=== PATIENT | male | born 1950 | race Caucasian/White ===

== ENCOUNTER 2016-12-23 13:22 | Emergency (ER) | payer BC, MEDICARE ==
[~2016-12-23] VITALS: Ht 180.3 cm; Wt 138.0 kg
[~2016-12-23 13:22] MED LIST: AMITRIPTYLINE H75 M1 PO; AMITRIPTYLINE150 MG PO; ASPIRIN 32325 MG/TAB PO; ASPIRIN E.C. 8181 MG PO; ASPIRIN E.C.325 MG PO; ATENOLOL50 MG PO; CALCIUM 600/VIT1 CAP PO; CALCIUM 600600 M2 PO; CALTRATE 600 +1 TAB PO; CALTRATE 600600 MG PO; CALTRATE-600 W600 MG PO; EFFIENT10 MG PO; FISH OIL CONC1000 MG PO; FLONASE NASAL S16 GM NS; FORTAMET500 MG PO; GLUCOPHAGE1000 MG PO; GLUCOPHAGE850 MG/TAB PO; GLUCOSAMINE/CHONDROI PO; LIPITOR 80MG80 MG PO; LIPITOR80 MG PO; LISINOPRIL10 MG PO; LISINOPRIL20 MG PO; LOPRESSOR 225 MG/TAB PO; METFORMIN850 MG PO; MOTRIN 800800 MG/TAB PO; MVI; MVI PO; NITROSTAT0.4 MG/TAB SL; NORCO 325 MG-7.1 TAB PO; NORVASC2.5 MG PO; OMEGA 31000 MG PO; PLAVIX 75MG TAB75 MG PO; PRILOSEC10 MG PO; PRINIVIL10 MG PO; ULTRAM 50MG TAB50 MG PO; VOLTAREN 75 DR75 MG PO; ZANTAC 150MG T150 MG PO; ZANTAC150 MG PO; ZETIA10 MG PO
[2016-12-23 13:25] VITALS: TEMP 99.5
[2016-12-23] MEDS ORDERED: EFFIENT5 MG PO (13:51)
[2016-12-23] MEDS ORDERED: PRINIVIL20 MG PO (13:51)
[2016-12-23] MEDS ORDERED: PRILOSEC10 MG PO (13:54)
[2016-12-23] MEDS ORDERED: GLUCOTROL 5M5 MG/TAB PO (13:55)
[2016-12-23] MEDS ORDERED: GLUCOTROL10 MG PO (13:55)
[2016-12-23 14:35] LABS: BASO % 0.5 % (0.0-2.0); EOS % 0.3 % (0-4.0); GRAN # 2.3 (1.4-6.5); HEMATOCRIT 43.4 % (42.0-52.0); HEMOGLOBIN 14.5 g/dl (13.5-18.0); LYMPH # 1.2 (1.2-3.4); LYMPH % 30.3 % (20.0-51.0); MEAN CELL VOLUME 93 fl (80.0-100.0); MEAN CORPUSCULAR HEMOGLOBIN 31 pg (27.0-31.0); MEAN CORPUSCULAR HGB CONC 33 g/dl (33.0-37.0); MEAN PLATELET VOLUME 9.9 fl (7.4-10.4); MONO # 0.4 (0.1-0.6); MONO % 10.4 % (1.7-9.3); PLATELET COUNT 111 K/mm3 (130-400); RED BLOOD COUNT 4.65 M/mm3 (4.20-5.60); WHITE BLOOD COUNT 3.9 K/mm3 (4.8-10.8)
[2016-12-23 14:44] LABS: ADJUSTED CALCIUM 9.3 mg/dL (8.4-10.2); ALANINE AMINOTRANSFERASE 61 U/L (21-72); ALBUMIN 3.9 gm/dL (3.5-5.0); ALKALINE PHOSPHATASE 94 U/L (50-136); ANION GAP 12 mmol/L (7-16); BILIRUBIN,TOTAL 1.5 mg/dL (0.0-1.0); BLOOD UREA NITROGEN 17 mg/dL (9-20); CALCIUM 9.2 mg/dL (8.4-10.2); CARBON DIOXIDE 24 mmol/L (22-30); CHLORIDE 98 mmol/L (98-107); CREATININE, serum 0.75 mg/dL (0.66-1.25); GLUCOSE 297 mg/dL (74-106); POTASSIUM 4.4 mmol/L (3.4-5.0); SODIUM 135 mmol/L (137-145); TOTAL PROTEIN 7.3 gm/dL (6.4-8.2)
[2016-12-23 14:56] LABS: TROPONIN-I < 0.012 ng/mL (0.000-0.034)
[2016-12-23 15:21] VITALS: BP 115/88; PULSE 89
== END 2016-12-23 15:23 | disposition home or self-care (01) ==
LOC: COL.ER 13:22
PROVIDERS: Emergency Medicine
DX: J06.9 Acute upper respiratory infection, unspecified (principal); I49.1 Atrial premature depolarization; I25.10 Atherosclerotic heart disease of native coronary artery without angina pectoris; Z95.5 Presence of coronary angioplasty implant and graft; I25.2 Old myocardial infarction

== ENCOUNTER 2019-01-02 12:23 | Emergency (ER) | payer MEDICARE, OTHER ==
[~2019-01-02] VITALS: Ht 180.3 cm; Wt 98.2 kg
[~2019-01-02 12:23] MED LIST changes: +EFFIENT5 MG PO; +GLUCOTROL 5M5 MG/TAB PO; +GLUCOTROL10 MG PO; +PRINIVIL20 MG PO
[2019-01-02 12:28] VITALS: TEMP 98.7
[2019-01-02] MEDS ORDERED: JARDIANCE10 (12:36)
[2019-01-02] MEDS ORDERED: LIPITOR 80MG80 MG PO (12:38)
[2019-01-02] MEDS ORDERED: CIPRO 500MG TA500 MG PO (13:07)
[2019-01-02 14:15] VITALS: BP 135/87; PULSE 85
== END 2019-01-02 14:15 | disposition home or self-care (01) ==
LOC: COL.ER 12:23
DX: H11.32 Conjunctival hemorrhage, left eye (principal); I25.10 Atherosclerotic heart disease of native coronary artery without angina pectoris; Z79.84 Long term (current) use of oral hypoglycemic drugs; Z79.51 Long term (current) use of inhaled steroids; Z23 Encounter for immunization

== ENCOUNTER 2020-04-14 06:37 | Day surgery (SDC) | payer MEDICARE, OTHER ==
[~2020-04-14] VITALS: Ht 180.3 cm; Wt 114.9 kg
[2020-04-14] VITALS (464 sets, daily range): BP systolic 97–144; BP diastolic 61–93; PULSE 62–100; TEMP 98.1–98.6; O2SAT 82–100
[~2020-04-14 06:37] MED LIST changes: -AMITRIPTYLINE150 MG PO; +CIPRO 500MG TA500 MG PO; +ELAVIL150 MG PO; +JARDIANCE10
[2020-04-14 07:52] LABS: HEMATOCRIT 43.7 % (42.0-52.0); HEMOGLOBIN 14.3 g/dl (13.5-18.0); MEAN CELL VOLUME 103 fl (80.0-100.0); MEAN CORPUSCULAR HEMOGLOBIN 34 pg (27.0-31.0); MEAN CORPUSCULAR HGB CONC 33 g/dl (33.0-37.0); MEAN PLATELET VOLUME 9.8 fl (7.4-10.4); PLATELET COUNT 105 K/mm3 (130-400); RED BLOOD COUNT 4.24 M/mm3 (4.20-5.60); REDCELL DISTRIBUTION WIDTH-CV 14.6 % (11.5-14.5)
[2020-04-14 08:01] LABS: CALCIUM 9.3 mg/dL (8.4-10.2); CREATININE, serum 0.78 (0.66-1.25); POTASSIUM 4.1 mmol/L (3.4-5.0)
[2020-04-14 08:04] LABS: PROTHROMBIN TIME 11.2 SECONDS (9.7-12.8)
[2020-04-14 08:06] LABS: PARTIAL THROMBOPLASTIN TIME 30.1 SECONDS (26.0-37.0)
[2020-04-14] MEDS ORDERED: ASPIRIN E.C. 8181 MG PO (08:28)
[2020-04-14] MEDS ORDERED: PROAIR HFA0.09 MG/AC IH (08:28)
[2020-04-14] MEDS ORDERED: NEOSPORIN1 OIN OP (08:29)
[2020-04-14] MEDS ORDERED: PLAVIX 75MG TAB75 MG PO (08:29)
[2020-04-14] MEDS ORDERED: NEURONTIN300 MG/CAP PO (08:30)
[2020-04-14] MEDS ORDERED: CYMBALTA 30MG30 MG PO (08:30)
[2020-04-14] MEDS ORDERED: IMDUR 60MG60 MG/TAB PO (08:31)
[2020-04-14] MEDS ORDERED: CLARITIN 1010 MG/TAB PO (08:32)
[2020-04-14] MEDS ORDERED: ULTRAM 50MG TAB50 MG PO (08:32)
--- NOTE | 2020-04-14 09:11 | NUR ---
SEE MERGE DOCUMENTATION FOR MEDICATION ADMINISTRATION AND INTRA/POST PROCEDURE SEDATION ASSESSMENTS.
--- NOTE | 2020-04-14 11:15 | NUR ---
R radial cath site clean, dry, et intact with no drainage or hematoma noted. Vitals stable at this time. Pt denies chest pain. Bed in low position, call light within reach, will continue to monitor.
--- NOTE | 2020-04-14 16:00 | NUR ---
Pt resting comfortably in bed. R radial cath site clean, dry, et intact with no drainage or hematoma noted. Vitals stable at this time. Pt denies pain or any other discomforts. Bed in low position, call light within reach, will continue to monitor.
[2020-04-15] VITALS (518 sets, daily range): BP systolic 125–149; BP diastolic 68–97; PULSE 65–94; TEMP 97.8–98.2; O2SAT 85–98
--- NOTE | 2020-04-15 | NUR ---
UPON ASSESSMENT PATIENT VERY CHEERFUL CALM, EASY LISTENER AND TALKER, DENIES DISCOMFORT
[2020-04-15 06:43] LABS: CALCIUM 8.8 mg/dL (8.4-10.2); CREATININE, serum 0.74 (0.66-1.25); POTASSIUM 4.2 mmol/L (3.4-5.0)
[2020-04-15 06:44] LABS: BASO % 0.5 % (0.0-2.0); EOS # 0.1 (0.0-0.7); EOS % 1.9 % (0-4.0); GRAN % 48.3 % (42.2-75.2); HEMATOCRIT 42.3 % (42.0-52.0); LYMPH # 1.5 (1.2-3.4); LYMPH % 36.9 % (20.0-51.0); MEAN CELL VOLUME 104 fl (80.0-100.0); MEAN CORPUSCULAR HEMOGLOBIN 35 pg (27.0-31.0); MEAN CORPUSCULAR HGB CONC 33 g/dl (33.0-37.0); MEAN PLATELET VOLUME 10.2 fl (7.4-10.4); MONO # 0.5 (0.1-0.6); MONO % 12.2 % (1.7-9.3); PLATELET COUNT 91 K/mm3 (130-400); RED BLOOD COUNT 4.06 M/mm3 (4.20-5.60); REDCELL DISTRIBUTION WIDTH-CV 14.6 % (11.5-14.5)
--- NOTE | 2020-04-15 09:10 | NUR ---
SW's met with the patient to discuss discharge plan. The patient lives in [place] with his , Lucy (ph#[phone]). He reports independence with ADLs and has a walking stick. The patient's PCP is Dr. Farshad Tate and he receives his medications at [facility]. He reports no difficulties obtaining his meds. The patient does not have advanced directives completed, but he was interested in obtaining a form for DPOA-HC. CHRISTY provided. The patient plans to return home with his upon discharge. No additional needs at this time.
[2020-04-15] MEDS ORDERED: BRILINTA90 MG PO (11:45)
== END 2020-04-15 12:55 | disposition home or self-care (01) ==
LOC: COL.CAR 06:37 → ICU 12:01 → IMCU 23:54 → COL.CAR 04-15 12:55
PROVIDERS: Internal Medicine Cardiovascular Disease
DX: I25.110 Atherosclerotic heart disease of native coronary artery with unstable angina pectoris (principal); I25.2 Old myocardial infarction; I11.9 Hypertensive heart disease without heart failure; I35.1 Nonrheumatic aortic (valve) insufficiency; G47.33 Obstructive sleep apnea (adult) (pediatric); E78.5 Hyperlipidemia, unspecified; E11.9 Type 2 diabetes mellitus without complications; Z79.84 Long term (current) use of oral hypoglycemic drugs; K21.9 Gastro-esophageal reflux disease without esophagitis; I73.9 Peripheral vascular disease, unspecified; Z87.891 Personal history of nicotine dependence; Z95.5 Presence of coronary angioplasty implant and graft; Z79.899 Other long term (current) drug therapy; Z79.82 Long term (current) use of aspirin; Z79.02 Long term (current) use of antithrombotics/antiplatelets; Z83.3 Family history of diabetes mellitus; Z80.42 Family history of malignant neoplasm of prostate; Z88.5 Allergy status to narcotic agent
CPT/HCPCS: OP; C1725; C1769; C1874; C1887; C1894; C9600; J0583; J1644

== ENCOUNTER 2020-06-10 10:52 | Outpatient (CLI) | payer MEDICARE, OTHER ==
[~2020-06-10] VITALS: Ht 180.3 cm; Wt 139.5 kg
[~2020-06-10 10:52] MED LIST changes: +BRILINTA90 MG PO; +CLARITIN 1010 MG/TAB PO; +CYMBALTA 30MG30 MG PO; +IMDUR 60MG60 MG/TAB PO; -JARDIANCE10; +JARDIANCE25 PO; +NEOSPORIN1 OIN OP; +NEURONTIN300 MG/CAP PO; +PROAIR HFA0.09 MG/AC IH
[2020-06-10 11:26] VITALS: BP 111/64; PULSE 68; TEMP 98.5
[2020-06-10] MEDS ORDERED: ELIQUIS 5MG PO (11:41)
[2020-06-10] MEDS ORDERED: KAPSPARGO SPRIN25 MG PO (11:41)
[2020-06-10] MEDS ORDERED: CEPHALEXIN500 M1 PO (12:10)
--- NOTE | 2020-06-10 13:00 | NUR ---
Kristian, Engineering Executive RN in room to change dressing over loop recorder insertion site after dressing has become partially saturated with blood. Bleeding now stopped. Site is observed for 15 mins prior to pt departing and remains C/D/I. Pt assisted out by wheelchair to 's car after review of DC instructions.
== END 2020-06-10 16:40 | disposition home or self-care (01) ==
LOC: COL.CAR 10:52
DX: I48.0 Paroxysmal atrial fibrillation (principal); I25.10 Atherosclerotic heart disease of native coronary artery without angina pectoris

== ENCOUNTER 2020-12-09 10:52 | Outpatient (CLI) | payer MEDICARE, OTHER ==
--- NOTE | 2020-12-01 13:14 | NUR ---
spoke to pt and let him know we need for him to come on the morning of 12/03 for the covid test. pt was agreeable.
[~2020-12-09] VITALS: Ht 180.3 cm; Wt 140.0 kg
[~2020-12-09 10:52] MED LIST changes: +CEPHALEXIN500 M1 PO; +ELIQUIS 5MG PO; +KAPSPARGO SPRIN25 MG PO; -PRINIVIL20 MG PO
[2020-12-09 11:40] LABS: HEMATOCRIT 43.3 % (42.0-52.0); HEMOGLOBIN 14.6 g/dl (13.5-18.0); MEAN CELL VOLUME 96 fl (80.0-100.0); MEAN CORPUSCULAR HEMOGLOBIN 32 pg (27.0-31.0); MEAN CORPUSCULAR HGB CONC 34 g/dl (33.0-37.0); MEAN PLATELET VOLUME 9.5 fl (7.4-10.4); PLATELET COUNT 127 K/mm3 (130-400); RED BLOOD COUNT 4.53 M/mm3 (4.20-5.60); REDCELL DISTRIBUTION WIDTH-CV 13.2 % (11.5-14.5)
[2020-12-09 11:48] LABS: INR 1.2 (0.8-3.0); PROTHROMBIN TIME 13.7 SECONDS (9.7-12.8)
[2020-12-09 11:50] LABS: CALCIUM 9.4 mg/dL (8.4-10.2); CREATININE, serum 0.77 (0.66-1.25); POTASSIUM 4.1 mmol/L (3.4-5.0)
[2020-12-09] MEDS ORDERED: BENADRYL25 M2 PO (11:56)
[2020-12-09] MEDS ORDERED: FLONASEALLERGY NS (11:57)
[2020-12-09 11:58] VITALS: BP 116/60; PULSE 64
[2020-12-09 12:55] VITALS: BP 120/72; PULSE 61
--- NOTE | 2020-12-09 12:55 | NUR ---
recieved report from Vianey HESTER after BELL. pt is awake and talking, no c/o. VSS. takes sprite
[2020-12-09 13:10] VITALS: BP 105/90; PULSE 60
--- NOTE | 2020-12-09 13:10 | NUR ---
Dr Cross into see pt, pt sits on side of bed, no c/o. IV d'cd intact. reviewed discharge inst. with pt on moderate sedation precautions and followup appt. made. Pt discharged via w/c at 1330
== END 2020-12-09 13:30 | disposition home or self-care (01) ==
LOC: COL.RAD 10:52
PROVIDERS: Internal Medicine Cardiovascular Disease
DX: Z95.818 Presence of other cardiac implants and grafts (principal)
CPT/HCPCS: J2704

== ENCOUNTER 2021-07-31 07:13 | Day surgery (SDC) | payer MEDICARE, OTHER ==
[~2021-07-31] VITALS: Ht 180.3 cm; Wt 154.5 kg
[2021-07-31] VITALS (11 sets, daily range): BP systolic 130–177; BP diastolic 68–96; PULSE 67–81; TEMP 98.5
[~2021-07-31 07:13] MED LIST changes: +BENADRYL25 M2 PO; +FLONASEALLERGY NS
[2021-07-31 08:22] LABS: HEMATOCRIT 35.8 % (42.0-52.0); HEMOGLOBIN 12.1 g/dl (13.5-18.0); MEAN CELL VOLUME 104 fl (80.0-100.0); MEAN CORPUSCULAR HEMOGLOBIN 35 pg (27.0-31.0); MEAN CORPUSCULAR HGB CONC 34 g/dl (33.0-37.0); PLATELET COUNT 106 K/mm3 (130-400); RED BLOOD COUNT 3.43 M/mm3 (4.20-5.60); REDCELL DISTRIBUTION WIDTH-CV 15.7 % (11.5-14.5)
[2021-07-31 08:36] LABS: PROTHROMBIN TIME 11.3 SECONDS (9.7-12.8)
[2021-07-31 08:38] LABS: PARTIAL THROMBOPLASTIN TIME 27.1 SECONDS (26.0-37.0)
[2021-07-31 08:39] LABS: CALCIUM 9.1 mg/dL (8.4-10.2); CREATININE, serum 0.81 mg/dL (0.72-1.25); POTASSIUM 4.5 mmol/L (3.5-4.5)
[2021-07-31] MEDS ORDERED: ASPIRIN E.C. 8181 MG PO (08:56)
[2021-07-31] MEDS ORDERED: BRILINTA90 MG PO (08:57)
[2021-07-31] MEDS ORDERED: LANTUS100 U/ML SQ (08:59)
[2021-07-31] MEDS ORDERED: FLOMAX 0.40.4 MG/CAP PO (09:03)
[2021-07-31] MEDS ORDERED: VENTOLIN0.09 MG IH (09:06)
[2021-07-31] MEDS ORDERED: IMDUR 60MG60 MG/TAB PO (10:54)
[2021-07-31] MEDS ORDERED: KAPSPARGO SPRIN25 MG PO (10:55)
[2021-07-31] MEDS ORDERED: RANEXA 500MG T500 MG PO (10:56)
--- NOTE | 2021-07-31 11:10 | NUR ---
Initial visit; Patient and his thanked Boat Carpenter for offering prayer and God's blessings prior to patient's surgical procedure.
[2021-07-31] MEDS ORDERED: NORVASC 5MG5 MG/TAB PO (12:32)
== END 2021-07-31 13:30 | disposition home or self-care (01) ==
LOC: COL.CAR 07:13
PROVIDERS: Internal Medicine Cardiovascular Disease
DX: I25.118 Atherosclerotic heart disease of native coronary artery with other forms of angina pectoris (principal); I48.0 Paroxysmal atrial fibrillation; I35.9 Nonrheumatic aortic valve disorder, unspecified; I10 Essential (primary) hypertension; I73.9 Peripheral vascular disease, unspecified; I83.93 Asymptomatic varicose veins of bilateral lower extremities; E66.01 Morbid (severe) obesity due to excess calories; I48.91 Unspecified atrial fibrillation; M19.90 Unspecified osteoarthritis, unspecified site; E11.9 Type 2 diabetes mellitus without complications; K21.9 Gastro-esophageal reflux disease without esophagitis; E78.5 Hyperlipidemia, unspecified; G47.33 Obstructive sleep apnea (adult) (pediatric); F41.9 Anxiety disorder, unspecified; Z79.82 Long term (current) use of aspirin; Z79.899 Other long term (current) drug therapy; Z20.822 Contact with and (suspected) exposure to COVID-19; Z79.84 Long term (current) use of oral hypoglycemic drugs; Z79.4 Long term (current) use of insulin; Z87.891 Personal history of nicotine dependence; Z68.42 Body mass index [BMI] 45.0-49.9, adult; Z83.3 Family history of diabetes mellitus; Z80.42 Family history of malignant neoplasm of prostate
CPT/HCPCS: J1644; J2250; J3010; Q9967

== ENCOUNTER 2021-11-02 09:09 | Day surgery (SDC) | payer MEDICARE, OTHER ==
[2021-11-02] VITALS (12 sets, daily range): BP systolic 112–1110; BP diastolic 58–86; PULSE 53–83; TEMP 97.8
[~2021-11-02] VITALS: Ht 180.3 cm; Wt 155.7 kg
[~2021-11-02 09:09] MED LIST changes: +FLOMAX 0.40.4 MG/CAP PO; +LANTUS100 U/ML SQ; +NORVASC 5MG5 MG/TAB PO; +RANEXA 500MG T500 MG PO; +VENTOLIN0.09 MG IH
[2021-11-02] MEDS ORDERED: TOPROL XL 25MG25 MG PO (09:28)
[2021-11-02] MEDS ORDERED: RANEXA 500MG T500 MG PO ×2 (09:29→15:27)
[2021-11-02] MEDS ORDERED: ISOSORBIDE MON120 MG PO (09:31)
[2021-11-02 10:07] LABS: HEMOGLOBIN 11.8 g/dl (13.5-18.0); MEAN CELL VOLUME 106 fl (80.0-100.0); MEAN CORPUSCULAR HEMOGLOBIN 36 pg (27-31); MEAN CORPUSCULAR HGB CONC 34 g/dl (33.0-37.0); MEAN PLATELET VOLUME 10.2 fl (7.4-10.4); PLATELET COUNT 138 K/mm3 (130-400); RED BLOOD COUNT 3.32 M/mm3 (4.20-5.60); REDCELL DISTRIBUTION WIDTH-CV 12.7 % (11.5-14.5)
[2021-11-02 10:14] LABS: HEMATOCRIT 35.1 % (42.0-52.0)
[2021-11-02 10:17] LABS: INR 1.1 (0.8-3.0); PROTHROMBIN TIME 12.3 SECONDS (9.7-12.8)
[2021-11-02 10:20] LABS: PARTIAL THROMBOPLASTIN TIME 26.2 SECONDS (26.0-37.0)
[2021-11-02] MEDS ORDERED: BREZTRI AEROS10.7 GM IH (10:36)
[2021-11-02 10:49] LABS: CREATININE, serum 0.82 mg/dL (0.72-1.25); POTASSIUM 4.2 mmol/L (3.5-4.5)
--- NOTE | 2021-11-02 11:12 | NUR ---
SEE MERGE DOCUMENTATION FOR MEDICATION ADMINISTRATION AND INTRA/POST PROCEDURE SEDATION ASSESSMENTS.
[2021-11-02] MEDS ORDERED: IMDUR 60MG60 MG/TAB PO (15:26)
--- NOTE | 2021-11-02 16:10 | NUR ---
Discharge instructions given to pt.Pt verbalizes understanding.INT removed,catheter tip intact.Pt escorted out via wheelchair.Dressing to right radial site observed clean,dry,intact and soft to touch.
== END 2021-11-02 16:40 ==
LOC: COL.CAR 09:09
PROVIDERS: Internal Medicine Cardiovascular Disease
DX: I25.110 Atherosclerotic heart disease of native coronary artery with unstable angina pectoris (principal); I48.91 Unspecified atrial fibrillation; I10 Essential (primary) hypertension; I73.9 Peripheral vascular disease, unspecified; E78.5 Hyperlipidemia, unspecified; E11.9 Type 2 diabetes mellitus without complications; M19.90 Unspecified osteoarthritis, unspecified site; F41.9 Anxiety disorder, unspecified; Z79.82 Long term (current) use of aspirin; Z79.899 Other long term (current) drug therapy; Z79.84 Long term (current) use of oral hypoglycemic drugs; Z79.4 Long term (current) use of insulin; Z95.818 Presence of other cardiac implants and grafts; Z87.891 Personal history of nicotine dependence; Z83.3 Family history of diabetes mellitus
CPT/HCPCS: C1769; C1887; J1644; J2250; J3010; Q9967

== ENCOUNTER 2021-11-27 13:20 | Outpatient (RCR) | payer MEDICARE, OTHER ==
[~2021-11-27 13:20] MED LIST changes: +BREZTRI AEROS10.7 GM IH; +ISOSORBIDE MON120 MG PO; +TOPROL XL 25MG25 MG PO
== END 2021-11-30 15:19 | disposition home or self-care (01) ==
LOC: COL.CR 13:20
DX: Z48.812 Encounter for surgical aftercare following surgery on the circulatory system (principal); Z95.5 Presence of coronary angioplasty implant and graft

== ENCOUNTER 2021-12-04 18:20 | Emergency (ER) | payer MEDICARE, OTHER ==
[~2021-12-04] VITALS: Ht 180.3 cm; Wt 151.4 kg
[2021-12-04 18:42] VITALS: TEMP 97.6
[2021-12-04 20:35] VITALS: BP 154/78; PULSE 76
== END 2021-12-04 20:35 | disposition home or self-care (01) ==
LOC: COL.ER 18:20
DX: S43.004A Unspecified dislocation of right shoulder joint, initial encounter (principal); W10.8XXA Fall (on) (from) other stairs and steps, initial encounter; X50.1XXA Overexertion from prolonged static or awkward postures, initial encounter; Z98.890 Other specified postprocedural states

== ENCOUNTER 2022-06-21 21:49 | Inpatient (IN) | payer MEDICARE, OTHER ==
[~2022-06-21] VITALS: Ht 180.3 cm; Wt 138.1 kg
[2022-06-21 23:01] LABS: BASO % 0.3 % (0.0-2.0); EOS % 0.2 % (0.0-4.0); GRAN # 5.4 K/mm3 (1.4-6.5); GRAN % 81.7 % (42.2-75.2); HEMOGLOBIN 12.7 g/dl (13.5-18.0); LYMPH # 0.6 K/mm3 (1.2-3.4); LYMPH % 9.5 % (20.0-51.0); MEAN CELL VOLUME 100 fl (80.0-100.0); MEAN CORPUSCULAR HEMOGLOBIN 34 pg (27-31); MEAN CORPUSCULAR HGB CONC 33 g/dl (33.0-37.0); MEAN PLATELET VOLUME 10.3 fl (7.4-10.4); MONO # 0.5 K/mm3 (0.1-0.6); MONO % 7.7 % (1.7-9.3); PLATELET COUNT 147 K/mm3 (130-400); RED BLOOD COUNT 3.79 M/mm3 (4.20-5.60); REDCELL DISTRIBUTION WIDTH-CV 14.3 % (11.5-14.5)
[2022-06-21 23:11] LABS: C-REACTIVE PROTEIN 19.42 mg/dL (0.00-0.50); CALCIUM 9.5 mg/dL (8.4-10.2); CREATININE, serum 1.02 mg/dL (0.72-1.25); MAGNESIUM 1.4 mg/dL (1.6-2.6); PHOSPHOROUS 2.3 mg/dL (2.3-4.7); POTASSIUM 4.6 mmol/L (3.5-4.5)
[2022-06-21 23:17] LABS: TROPONIN-I 0.022 ng/mL (0.00-0.033)
[2022-06-21] MEDS ORDERED: BACTRIM DS 8001 TAB PO (23:51)
[2022-06-21] MEDS ORDERED: LASIX 20MG TABL20 MG PO (23:54)
[2022-06-22] VITALS: BP 103/49; PULSE 76; TEMP 99
--- NOTE | 2022-06-22 00:53 | NUR ---
ARRIVES PER CART FROM ED.
--- NOTE | 2022-06-22 01:00 | NUR ---
PT ABLE TO HELP WITH TRANSFER FROM CART TO BED. HAS LEFT OUTER ANKLE HEALING INCISION WITH 4 LARGE STERI STRIPS AT TOP AND BOTTOM OF INCISION. MIDDLE PORTION OF INCISION IS OPEN, DRAINING PURULENT DRAINAGE, WOUND CULTURE OBTAINED. PT LLE MILDLY SWOLLEN AND PAINFUL TO MOVE. IV SITE TO RAC, ANTIBIOTICS INFUSING WITHOUT PROBLEM. PT IS ALERT AND ORIENTED X4. ABD APPLIED TO LT OUTER ANKLE WOUND KERLIX WRAP SECURED. SCDS APPLIED.
[2022-06-22] MEDS ORDERED: NORVASC 5MG5 MG/TAB PO (01:08)
[2022-06-22] MEDS ORDERED: GLUCOPHAGE XR500 M1 PO (01:09)
--- NOTE | 2022-06-22 02:20 | NUR ---
Vancomycin Initial Dosing Pharmacy Note Ordering provider: Dina Tierney MD Indication/duration: Surgical site infection x 7 days Relevant comorbidities: DM, HTN LABS: SCr = 1.02, WBC = 6.6, Tmax = 99.4 F Recommendation: Will draw troughs and follow levels. Loading dose: 2.5 grams Maintenance dose: 1.5 grams every 12 hours Trough goal: 10-15 ug/mL
--- NOTE | 2022-06-22 04:00 | NUR ---
PT RESTING WELL. IV ANTIBIOTIC INFUSING TO RAC WITHOUT REDNESS OR SWELLING. HAS NOT VOIDED SINCE ARRIVAL TO FLOOR.
[2022-06-22 04:14] VITALS: BP 115/57; PULSE 77; TEMP 98.5
[2022-06-22 06:34] LABS: BASO % 0.4 % (0.0-2.0); EOS % 0.4 % (0.0-4.0); GRAN # 3.7 K/mm3 (1.4-6.5); HEMOGLOBIN 11.7 g/dl (13.5-18.0); LYMPH # 0.7 K/mm3 (1.2-3.4); LYMPH % 14.5 % (20.0-51.0); MEAN CELL VOLUME 101 fl (80.0-100.0); MEAN CORPUSCULAR HEMOGLOBIN 34 pg (27-31); MEAN CORPUSCULAR HGB CONC 33 g/dl (33.0-37.0); MONO # 0.5 K/mm3 (0.1-0.6); MONO % 9.3 % (1.7-9.3); PLATELET COUNT 119 K/mm3 (130-400); RED BLOOD COUNT 3.49 M/mm3 (4.20-5.60); REDCELL DISTRIBUTION WIDTH-CV 14.5 % (11.5-14.5)
[2022-06-22 06:36] LABS: HEMATOCRIT 35.3 % (42.0-52.0)
[2022-06-22 06:50] LABS: CALCIUM 9.1 mg/dL (8.4-10.2); MAGNESIUM 2.2 mg/dL (1.6-2.6); POTASSIUM 4.1 mmol/L (3.5-4.5)
[2022-06-22 07:25] VITALS: BP 121/61; PULSE 87; TEMP 99
--- NOTE | 2022-06-22 08:00 | NUR ---
PATIENT IS A&O. VSS. C/O MILD DISCOMFORT IN LEFT ANKLE, REQUESTING TYLENOL, GIVEN. IV FLUIDS AND IV ABX INFUSING VIA PUMP INTO RIGHT AC IV. LLE WOUND CULTURES PENDING. SEE ORDERS FOR I.D. CONSULT. LLE ELEVATED WITH PILLOW AND WALKING BOOT INPLACE. NWB TO LLE. PT/OT CONSULTED. SCD'S TO BLE CURRENTLY OFF. HEAD TO TOE ASSESSMENT COMPLETE. AM MEDS GIVEN. ORTHO ROUNDED EARLY THIS AM, SEE ORDERS. NO OTHER NEEDS AT THIS TIME. CALL LIGHT IN REACH. NOW HERE AT BEDSIDE.
[2022-06-22 11:29] VITALS: BP 100/57; PULSE 87; TEMP 100.1
--- NOTE | 2022-06-22 11:46 | NUR ---
lithopone mill worker met with patient to complete intake and discuss discharge plan. Patient reports that he lives at home with his Lucy ([phone]) in [place]. Lucy is present at bedside. Patient has been independent with his ADL's and will utilizes a walking stick and rollator walker to assist with mobility. Patient has no home oxygen needs. PCP is and they utilizes [facility] in [place] for prescriptions. Per patient he does not have a DPOA-HC established. Education provided and he denied offer to establish one. SW spoke with the patient for the need of IV antibiotics. Patient reports that he has been doing physical therapy at [facility] and would like to go there and get his IV antibiotics as well. Discharge plan: Home with outpatient PT and outpatient IV antibiotics.
--- NOTE | 2022-06-22 13:18 | NUR ---
Patti: Adventism Situation: Cotton Bag Sewer stopped by room on rounds Background: Pt was resting and content Assessment: No needs right now. Pt appreciated the visit Recommendation: Cotton Bag Sewer will follow up as needed
[2022-06-22 16:35] VITALS: BP 119/63; PULSE 80; TEMP 100.3
[2022-06-22 20:04] VITALS: BP 116/49; PULSE 82; TEMP 99
[2022-06-23] VITALS (11 sets, daily range): BP systolic 91–132; BP diastolic 48–65; PULSE 56–100; TEMP 97.1–101.2
--- NOTE | 2022-06-23 00:56 | NUR ---
PATIENT ALERT AND ORIENTED X4, VSS, STILL WITH IV INFUSING WELL ON RAC, NWB ON LLE, WALKING BOOT IN PLACE, LLE ELEVATED WITH PILLOWS, COMPLAINED OF LEFT DAYNE DISCOMFORT AT THE TIME OF ASSESSEMENT BUT DIDN'T ASK FOR A PAIN PILL, INFORMED SHARATH AT 2115 REGARDING THE BLOOD CULTURE RESULT WHICH IS POSITIVE FOR STAPH, IV ANTIBIOTICS GIVEN SCHEDULES, NO FURTHER NEEDS OR CONCERNS AT THIS TIME, WILL CONTINUE TO MONITOR.
--- NOTE | 2022-06-23 06:14 | NUR ---
PATIENT SLEPT FOR JUST FEW HOURS, THIS NURSE ASKED IF THERE IS SOMETHING BOTHERING HIM AND HE SAID HE SLEPT ALL DAY YESTERDAY THAT'S WHY HE COUDN'T SLEEP LAST NIGHT, STILL IV FLUIDS INFUSING WELL, ANTIBIOTICS GIVEN SCHEDULED.
[2022-06-23 06:29] LABS: BASO % 0.5 % (0.0-2.0); EOS # 0.1 K/mm3 (0.0-0.7); EOS % 1.1 % (0.0-4.0); GRAN # 2.2 K/mm3 (1.4-6.5); HEMOGLOBIN 11.1 g/dl (13.5-18.0); LYMPH # 1.6 K/mm3 (1.2-3.4); LYMPH % 35.5 % (20.0-51.0); MEAN CELL VOLUME 99 fl (80.0-100.0); MEAN CORPUSCULAR HEMOGLOBIN 34 pg (27-31); MEAN CORPUSCULAR HGB CONC 34 g/dl (33.0-37.0); MEAN PLATELET VOLUME 10.1 fl (7.4-10.4); MONO # 0.6 K/mm3 (0.1-0.6); MONO % 12.7 % (1.7-9.3); PLATELET COUNT 134 K/mm3 (130-400); RED BLOOD COUNT 3.27 M/mm3 (4.20-5.60); REDCELL DISTRIBUTION WIDTH-CV 14.3 % (11.5-14.5)
[2022-06-23 06:30] LABS: CALCIUM 9.1 mg/dL (8.4-10.2); CREATININE, serum 0.95 mg/dL (0.72-1.25); POTASSIUM 3.9 mmol/L (3.5-4.5)
[2022-06-23 06:37] LABS: HEMATOCRIT 32.5 % (42.0-52.0)
--- NOTE | 2022-06-23 08:00 | NUR ---
PATIENT IS A&O. NOTED ELEVATED TEMP OF 101.2, PRN TYLENOL GIVEN WITH AM MEDS. ALL OTHER VSS. IV ZOSYN INFUSING VIA PUMP INTO RIGHT AC IV. NPO FOR SURGERY LATER TODAY. CONSENT OBTAINED AND PUT ON CHART. BC POSITIVE FOR STAPH. I.D. CONSULTED. HEAD TO TOE ASSESSMENT COMPLETE. ACEWRAP DSG & WALKING BOOT TO LLE. NWB TO LLE. PATIENT USING KNEE SCOOTER TO AMBULATE. PT/OT CONSULTED. AT BEDSIDE. NO OTHER NEEDS AT THIS TIME. CALL LIGHT IN REACH.
--- NOTE | 2022-06-23 12:29 | NUR ---
PATIENT GOING DOWN TO OR VIA BED. CONSENT ON CHART. IV FLUIDS TO GAVITY. PATIENT OFF FLOOR.
--- NOTE | 2022-06-23 14:50 | NUR ---
PATIENT BACK IN ROOM POST OP. ORIENTED BUT DROWSY. VSS. NO COMPLAINTS OF PAIN OR NAUSEA. AT BEDSIDE. EATTING ICE CHIPS. CALL LIGHT IN REACH. NO NEEDS.
--- NOTE | 2022-06-24 01:38 | NUR ---
PATIENT ALERT AND ORIENTEDX4, WITH IV INFUSING WELL ON LEFT HAND, DENIES PAIN, WITH LLE DRESSING WRAPPED WITH BHAVNA WRAP CLEAN, DRY AND INTACT, NO FURTHER NEEDS OR CONCERNS AT THIS TIME, WILL CONTINUE TO MONITOR.
[2022-06-24 03:46] VITALS: BP 150/73; PULSE 55; TEMP 97.3
[2022-06-24 05:37] LABS: GRAN # 1.5 K/mm3 (1.4-6.5); GRAN % 61.9 % (42.2-75.2); HEMOGLOBIN 10.7 g/dl (13.5-18.0); LYMPH # 0.7 K/mm3 (1.2-3.4); LYMPH % 29.8 % (20.0-51.0); MEAN CELL VOLUME 101 fl (80.0-100.0); MEAN CORPUSCULAR HEMOGLOBIN 34 pg (27-31); MEAN CORPUSCULAR HGB CONC 33 g/dl (33.0-37.0); MONO # 0.2 K/mm3 (0.1-0.6); MONO % 7.9 % (1.7-9.3); PLATELET COUNT 117 K/mm3 (130-400); RED BLOOD COUNT 3.19 M/mm3 (4.20-5.60); REDCELL DISTRIBUTION WIDTH-CV 14.1 % (11.5-14.5)
[2022-06-24 05:40] LABS: HEMATOCRIT 32.1 % (42.0-52.0)
[2022-06-24 05:55] LABS: CALCIUM 9.1 mg/dL (8.4-10.2); CREATININE, serum 1.01 mg/dL (0.72-1.25); POTASSIUM 4.4 mmol/L (3.5-4.5)
--- NOTE | 2022-06-24 06:15 | NUR ---
PATIENT HAS SLEPT MOST OF THE NIGHT, IV ANTIBIOTICS GIVEN, DENIES NEEDS FOR PAIN MEDS, WILL CONTINUE TO MONITOR.
[2022-06-24 07:17] VITALS: BP 135/63; PULSE 56; TEMP 97.7
--- NOTE | 2022-06-24 08:00 | NUR ---
PATIENT IS A&O. VSS. DENIES ANY COMPLAINTS. LLE DRESSING IS CD&I WITH SPLINT & ACEWRAP. LLE IS ELEVATED WITH ICE PACK. PATEINT GETTING IV ABX AND FLUIDS INFUSING VIA PUMP INTO LEFT HAND IV. HEAD TO TOE ASSESSMENT COMPLETE. ACEWRAP DSG & WALKING BOOT TO LLE. NWB TO LLE. PATIENT USING KNEE SCOOTER TO AMBULATE. PT/OT CONSULTED. AT BEDSIDE. NO OTHER NEEDS AT THIS TIME. CALL LIGHT IN REACH.
[2022-06-24 11:24] VITALS: BP 108/66; PULSE 55; TEMP 97.5
[2022-06-24 15:37] VITALS: BP 106/55; PULSE 54; TEMP 97.7
[2022-06-24 19:24] VITALS: BP 115/61; PULSE 59; TEMP 97.8
--- NOTE | 2022-06-24 22:00 | NUR ---
PATIENT ALERT AND ORIENTED X4, INT TO LH, BHAVNA WRAP WET WITH URINE BY ACCIDENT WHEN HE WENT TO THE BATHROOM, REMOVED THE BHAVNA WRAP AND APPLIED A NEW ONE, DENIES NEED FOR MEDICINE, KEPT LLE ELEVATED, NWB TO LLE, IV ANTIBIOTICS GIVEN, NO FURTHER NEEDS OR CONCERNS AT THIS TIME, CALL LIGHT AND PERSONAL ITEMS WITHIN REACH.
[2022-06-24 23:18] VITALS: BP 130/63; PULSE 51; TEMP 97.4
[2022-06-25 04:26] VITALS: BP 136/85; PULSE 59; TEMP 97.6
[2022-06-25 07:55] VITALS: BP 143/83; PULSE 57; TEMP 97.7
[2022-06-25] MEDS ORDERED: MAXIPIME2 GM IV (08:39)
--- NOTE | 2022-06-25 09:24 | NUR ---
PATIENT ALERT AND ORIENTED X4. VSS. PATIENT HERE FOR I&D OF LEFT ANKLE. PATIENT DENIES PAIN AT THIS TIME. LEFT HAND INT FLUSHES WELL. DRESSING CLEAN AND DRY TO LEFT ANKLE. ASSESSMENT PERFORMED. AM MEDS ADMINISTERED. PICC LINE TO BE PLACED FOR OUTPATIENT ABX X6 WEEKS. CALL LIGHT WITHIN REACH.
--- NOTE | 2022-06-25 10:24 | NUR ---
Patient's antibiotic orders faxed to [facility] Nursing stating. At this time, patient does not have a PICC line in place. Will await PICC line orders to fax. PAtient presented with MCR.IM form. Education provided and patient verbalized his agreement with discharge plan. Patients signed original placed in the patient's chart and copy provided back to the patient. Discharge plan: HOme with outpatient pt
[2022-06-25 12:05] VITALS: BP 130/70; PULSE 71; TEMP 97.6
--- NOTE | 2022-06-25 13:13 | NUR ---
DISCHARGE INSTRUCTIONS PROVIDED. PATIENT EDUCATION GIVEN. FOLLOW UP APPOINTMENTS DISCUSSED. PATIENT DENIES ANY QUESTIONS OR CONCERNS AT THIS TIME. PATIENT GOING HOME WITH PICC LINE. PATIENT ESCORTED OUT VIA WHEELCHAIR.
--- NOTE | 2022-06-25 14:43 | NUR ---
Patient's PICC care and discharge orders faxed to [facility] Nursing station
== END 2022-06-25 13:15 | disposition home or self-care (01) | DRG 493 ==
LOC: COL.ER 21:49 → SURG 23:08
PROVIDERS: Emergency Medicine; Orthopaedic Surgery; Physician Assistant; Student in an Organized Health Care Education/Training Program; ADMIT Student in an Organized Health Care Education/Training Program
PROC: 0S9G0ZZ Drainage of Left Ankle Joint, Open Approach (ICD-10-PCS; principal; 2022-06-23 14:00)
PROC: 02HV33Z Insertion of Infusion Device into Superior Vena Cava, Percutaneous Approach (ICD-10-PCS; 2022-06-25)
DX: T84.59XA Infection and inflammatory reaction due to other internal joint prosthesis, initial encounter (principal); M00.9 Pyogenic arthritis, unspecified; L03.116 Cellulitis of left lower limb; Z95.5 Presence of coronary angioplasty implant and graft; Z96.662 Presence of left artificial ankle joint; Z96.651 Presence of right artificial knee joint; I10 Essential (primary) hypertension; I25.10 Atherosclerotic heart disease of native coronary artery without angina pectoris; G89.29 Other chronic pain; E11.40 Type 2 diabetes mellitus with diabetic neuropathy, unspecified; E11.65 Type 2 diabetes mellitus with hyperglycemia; N40.0 Benign prostatic hyperplasia without lower urinary tract symptoms; E83.42 Hypomagnesemia; F32.A Depression, unspecified; M79.7 Fibromyalgia; M19.90 Unspecified osteoarthritis, unspecified site; G47.33 Obstructive sleep apnea (adult) (pediatric); E78.5 Hyperlipidemia, unspecified; J45.909 Unspecified asthma, uncomplicated; K21.9 Gastro-esophageal reflux disease without esophagitis; E11.42 Type 2 diabetes mellitus with diabetic polyneuropathy; F41.9 Anxiety disorder, unspecified; Y83.8 Other surgical procedures as the cause of abnormal reaction of the patient, or of later complication, without mention of misadventure at the time of the procedure; K44.9 Diaphragmatic hernia without obstruction or gangrene; B96.89 Other specified bacterial agents as the cause of diseases classified elsewhere; Z79.01 Long term (current) use of anticoagulants; Z90.49 Acquired absence of other specified parts of digestive tract; Z79.82 Long term (current) use of aspirin; Z88.5 Allergy status to narcotic agent; Z88.8 Allergy status to other drugs, medicaments and biological substances; Z79.4 Long term (current) use of insulin; Z72.89 Other problems related to lifestyle; Z87.891 Personal history of nicotine dependence; I25.2 Old myocardial infarction; Y92.89 Other specified places as the place of occurrence of the external cause
CPT/HCPCS: A9284; C1751; J0690; J0692; J1100; J1815; J2405; J2543; J2704; J3010; J3370; J3475; J7030; J7050; J7120